=== PATIENT | male | born 1955 | race Caucasian/White ===

== ENCOUNTER 2022-06-25 14:22 | Emergency (ER) | payer MEDICARE ==
[2022-06-25] MEDS ORDERED: Acetaminophen/HYDROcodone 325-5 MG Tab PO ONE (15:30)
[2022-06-25] MEDS ORDERED: HYDROmorphone 0.5 MG/0.5 ML Syringe IM ONE (15:32)
== END 2022-06-25 17:16 | disposition home or self-care (01) ==
LOC: JP.ED 14:22
DX: S43.402A Unspecified sprain of left shoulder joint, initial encounter (principal); E78.00 Pure hypercholesterolemia, unspecified; I10 Essential (primary) hypertension; Z79.899 Other long term (current) drug therapy; Z86.16 Personal history of COVID-19; Z90.49 Acquired absence of other specified parts of digestive tract
CPT/HCPCS: 73030; 96372; 99283; J1170

== ENCOUNTER 2022-10-13 13:11 | Emergency (ER) | payer OTHER, MEDICARE | END 2022-10-13 14:06 | disposition home or self-care (01) | LOC: JP.ED 13:11 | DX: S76.202A Unspecified injury of adductor muscle, fascia and tendon of left thigh, initial encounter (principal); M23.8X2 Other internal derangements of left knee; E78.00 Pure hypercholesterolemia, unspecified; I10 Essential (primary) hypertension; Z79.899 Other long term (current) drug therapy; Z86.16 Personal history of COVID-19; X50.1XXA Overexertion from prolonged static or awkward postures, initial encounter | CPT/HCPCS: 99283 ==

== ENCOUNTER 2023-02-12 18:45 | Emergency (ER) | payer MEDICARE | END 2023-02-12 19:32 | disposition home or self-care (01) | LOC: JP.ED 18:45 | DX: S30.851A Superficial foreign body of abdominal wall, initial encounter (principal); L98.9 Disorder of the skin and subcutaneous tissue, unspecified; I10 Essential (primary) hypertension; E78.00 Pure hypercholesterolemia, unspecified; Z79.899 Other long term (current) drug therapy; Z86.16 Personal history of COVID-19; W45.8XXA Other foreign body or object entering through skin, initial encounter | CPT/HCPCS: 99282 ==